=== PATIENT | female | born 1965 | race Hispanic/Latino ===

== ENCOUNTER 2018-05-28 05:39 | Emergency (ER) | payer OTHER ==
[2018-05-28 05:41] VITALS: BMI 35.5
--- NOTE | 2018-05-28 05:52 | ED PDOC ---
Arrival/HPI - General Time Seen by Provider: 05/28/18 05:40 Historian: Patient - History of Present Illness Narrative History of Present Illness (Text): 05/28/18 05:49 53 year old female, whose past medical history includes asthma and thyroid disease, presents to the emergency department with chest discomfort, since 23:00 yesterday. Patient states the pain started shortly after dinner. Patient informs of some associated abdominal pain at the time, which has since resolved. Patient states discomfort is midsternal and feels "tight". reports subjective dyspnea. fever, chills, cough, nausea, vomiting, diarrhea, or any other complaints. 05/28/18 06:29 Time/Duration: 4-6 hours Symptom Onset: Gradual Symptom Course: Unchanged Quality: Tightness Past Medical History - Provider Review Nursing Documentation Reviewed: Yes Family/Social History - Physician Review Nursing Documentation Reviewed: Yes Family/Social History: No Known Family HX Allergies/Home Meds Allergies/Adverse Reactions: Allergies No Known Allergies Allergy (Verified 05/28/18 05:42) Review of Systems - Physician Review All systems were reviewed & negative as marked: Yes - Review of Systems Constitutional: absent: Fevers, Night Sweats Respiratory: absent: SOB, Cough Cardiovascular: Chest Pain (Chest discomfort) Gastrointestinal: absent: Diarrhea, Nausea, Vomiting Physical Exam Vital Signs Reviewed: Yes Temperature: Afebrile Blood Pressure: Hypotensive Pulse: Regular Respiratory Rate: Normal Appearance: Positive for: Well-Appearing, Non-Toxic, Comfortable Pain Distress: None Mental Status: Positive for: Alert and Oriented X 3 - Systems Exam Head: Present: Atraumatic, Normocephalic Pupils: Present: PERRL Extroacular Muscles: Present: EOMI Conjunctiva: Present: Normal Mouth: Present: Moist Mucous Membranes Neck: Present: Normal Range of Motion Respiratory/Chest: Present: Clear to Auscultation, Good Air Exchange. No: Respiratory Distress, Accessory Muscle Use Cardiovascular: Present: Regular Rate and Rhythm, Normal S1, S2. No: Murmurs Abdomen: No: Tenderness, Distention, Peritoneal Signs Back: Present: Normal Inspection Upper Extremity: Present: Normal Inspection. No: Cyanosis, Edema Lower Extremity: Present: Normal Inspection. No: Edema Neurological: Present: GCS=15, CN II-XII Intact, Speech Normal Skin: Present: Warm, Dry, Normal Color. No: Rashes Psychiatric: Present: Alert, Oriented x 3, Normal Insight, Normal Concentration Medical Decision Making ED Course and Treatment: 05/28/18 05:53 Impression: 53 year old female presents with chest discomfort ro acs pe Plan: -- Chest X-ray -- Labs -- Aspirin -- EKG -- Urinalysis -- Reassess and disposition Progress Notes: 05/28/18 05:54 EKG Reviewed by me, shows: Normal sinus rhythm @96 bpm Non specific STT wave changes No previous for comparison 05/28/18 06:30 05/28/18 19:20 case endorsed pending cxr labs reassess and final dispo. - Scribe Statement The provider has reviewed the documentation as recorded by the Scribe Fox Weiss Provider Scribe Attestation: All medical record entries made by the Scribe were at my direction and personally dictated by me. I have reviewed the chart and agree that the record accurately reflects my personal performance of the history, physical exam, medical decision making, and the department course for this patient. I have also personally directed, reviewed, and agree with the discharge instructions and disposition. Disposition/Present on Arrival - Present on Arrival Any Indicators Present on Arrival: No - Disposition Have Diagnosis and Disposition been Completed?: Yes Diagnosis: Gastritis, Chest pain Disposition: HOME/ ROUTINE Disposition Time: 07:00 Condition: IMPROVED Discharge Instructions (ExitCare): Gastritis (DC), Chest Pain (ED) Print Language: GERMAN Additional Instructions: All medical record entries made by the Scribe were at my direction and personally dictated by me. I have reviewed the chart and agree that the record accurately reflects my personal performance of the history, physical exam, medical decision making, and the department course for this patient. I have also personally directed, reviewed, and agree with the discharge instructions and disposition. Prescriptions: Famotidine [Pepcid] 40 mg PO DAILY 10 Days #10 tablet Ondansetron ODT [Zofran ODT] 4 mg PO PRN PRN #4 odt PRN Reason: Nausea/Vomiting Referrals: Alberto Parra MD [Staff Provider] - Follow up with primary Forms: [employer] ([place]ian)
[2018-05-28 06:26] LABS: BASO # 0.03 K/mm3 (0.0-2.0); BASO % 0.4 % (0.0-3.0); EOS # 0.1 (0.0-0.7); EOS % 1.1 % (1.5-5.0); GRAN # 5.83 (1.4-6.5); HEMOGLOBIN 13.6 g/dL (12.0-16.0); LYMPH % 23.1 % (22.0-35.0); MEAN CELL VOLUME 89.6 fl (80.0-105.0); MEAN CORPUSCULAR HEMOGLOBIN 30.1 pg (25.0-35.0); MEAN CORPUSCULAR HGB CONC 33.6 g/dl (31.0-37.0); MONO # 0.6 (0.1-0.6); MONO % 7.4 % (1.0-6.0); RBC 4.52 10^6/uL (3.5-6.1); RED CELL DISTRIBUTION WIDTH 12.9 % (11.5-14.5); WHITE BLOOD COUNT 8.6 10^3/uL (4.5-11.0)
[2018-05-28 06:28] LABS: URINE BILIRUBIN NEGATIVE (NEGATIVE); URINE BLOOD NEGATIVE (NEGATIVE); URINE GLUCOSE (UA) NEGATIVE (NEGATIVE); URINE LEUKOCYTE ESTERASE NEGATIVE Leu/uL (NEGATIVE); URINE PROTEIN NEGATIVE mg/dL (<30 mg/dL); URINE UROBILINOGEN 0.2 E.U./dL (<1 E.U./dL)
[2018-05-28 06:31] LABS: URINE APPEARANCE CLEAR (CLEAR); URINE COLOR YELLOW (YELLOW)
[2018-05-28 06:34] LABS: HCG,QUALITATIVE URINE NEGATIVE (NEGATIVE)
[2018-05-28 06:38] LABS: INR 0.96; PARTIAL THROMBOPLASTIN TIME 26.5 Seconds (25.1-36.5)
[2018-05-28 06:39] LABS: ALB/GLOB RATIO 1.3 (1.1-1.8); ALBUMIN 4.5 g/dL (3.0-4.8); ALT/SGPT 54 U/L (7-56); AST/SGOT 44 U/L (14-36); BLOOD UREA NITROGEN 12 mg/dL (7-21); CALCIUM 9.1 mg/dL (8.4-10.5); GFR NON-AFRICAN AMERICAN > 60; LIPASE 37 U/L (23-300)
[2018-05-28 06:50] LABS: B-TYPE NATRIURETIC PEPTIDE 55.1 pg/mL (0-450); TROPONIN I < 0.01 ng/mL
--- NOTE | 2018-05-28 07:12 | ED PDOC ---
Physical Exam Vital Signs Reviewed: Yes Vital Signs Temp Pulse Resp BP Pulse Ox 05/28/18 05:42 97.6 F 92 H 20 99/74 L 96 Temperature: Afebrile Blood Pressure: Hypotensive Pulse: Tachycardic Respiratory Rate: Normal Medical Decision Making ED Course and Treatment: 05/28/18 07:06 Patient endorsed to me by Dr. Dean. Patient is a 53 year old female presenting to the emergency department complaining of chest discomfort. Pending Chest X-ray results. 05/28/18 07:22 Troponin & D-dimer WNL. Repeat EKG order. Discussion regarding symptoms with patient admitting the onset of chest pain after the ingestion of spicy food at her parent's house and requests a GI c ocktail. She admantly does not think her chest pain is cardiac in origin and wishes to follow up with her PCP who will refer her to a gunner's mate m. - Lab Interpretations Lab Results: 05/28/18 05:53 05/28/18 05:53 Lab Results 05/28/18 06:01: Urine Color Yellow, Urine Appearance Clear, Urine pH 6.0, Ur Specific [place] 1.025, Urine Protein Negative, Urine Glucose (UA) Negative, Urine Ketones Negative, Urine Blood Negative, Urine Nitrate Negative, Urine Bilirubin Negative, Urine Urobilinogen 0.2, Ur Leukocyte Esterase Negative, Urine HCG, Qual Negative 05/28/18 06:00: D-Dimer, Quantitative < 200 05/28/18 05:53: Sodium 140, Potassium 4.2, Chloride 104, Carbon Dioxide 27, Anion Gap 13, BUN 12, Creatinine 0.8, Est GFR ( Amer) > 60, Est GFR (Non- Af Amer) > 60, Random Glucose 121 H, Calcium 9.1, Magnesium 1.6 L, Total Bilirubin 0.4, AST 44 H, ALT 54, Alkaline Phosphatase 85, Lactate Dehydrogenase 513, Total Creatine Kinase 104, Troponin I < 0.01, NT-Pro-B Natriuret Pep 55.1, Total Protein 7.8, Albumin 4.5, Globulin 3.4, Albumin/Globulin Ratio 1.3, Lipase 37 05/28/18 05:53: PT 11.0, INR 0.96, APTT 26.5 05/28/18 05:53: WBC 8.6, RBC 4.52, Hgb 13.6, Hct 40.5, MCV 89.6, MCH 30.1, MCHC 33.6, RDW 12.9, Plt Count 276, MPV 10.0, Gran % 68.0, Lymph % (Auto) 23.1, [place] % (Auto) 7.4 H, Eos % (Auto) 1.1 L, Baso % (Auto) 0.4, Gran # 5.83, Lymph # (Auto) 2.0, [place] # (Auto) 0.6, Eos # (Auto) 0.1, Baso # (Auto) 0.03 - RAD Interpretation Radiology Orders: 05/28/18 05:48 CHEST PORTABLE [RAD] Stat - EKG Interpretation EKG Interpretation (Text): 05/28/18 08:00 NSR @ 76bpm No ST elevations/depressions. No T wave inversions noted Interpreted by ED Physician: Yes - Medication Orders Current Medication Orders: Discontinued Medications Aspirin (Aspirin) 325 mg PO STAT STA Stop: 05/28/18 05:49 Last Admin: 05/28/18 06:06 Dose: 325 mg - Scribe Statement The provider has reviewed the documentation as recorded by the Scribe Sharyn Encinas All medical record entries made by the Scribe were at my direction and personally dictated by me. I have reviewed the chart and agree that the record accurately reflects my personal performance of the history, physical exam, medical decision making, and the department course for this patient. I have also personally directed, reviewed, and agree with the discharge instructions and disposition. Disposition/Present on Arrival - Present on Arrival Any Indicators Present on Arrival: No History of DVT/PE: No History of Uncontrolled Diabetes: No Urinary Catheter: No History of Decub. Ulcer: No History Surgical Site Infection Following: None - Disposition Have Diagnosis and Disposition been Completed?: Yes Diagnosis: Gastritis Disposition: HOME/ ROUTINE Disposition Time: 08:24 Patient Plan: Discharge Condition: IMPROVED Discharge Instructions (ExitCare): Gastritis (DC) Print Language: SWEDISH Additional Instructions: All medical record entries made by the Scribe were at my direction and personally dictated by me. I have reviewed the chart and agree that the record accurately reflects my personal performance of the history, physical exam, medical decision making, and the department course for this patient. I have also personally directed, reviewed, and agree with the discharge instructions and disposition. Prescriptions: Famotidine [Pepcid] 40 mg PO DAILY 10 Days #10 tablet Ondansetron ODT [Zofran ODT] 4 mg PO PRN PRN #4 odt PRN Reason: Nausea/Vomiting Referrals: Alberto Parra MD [Staff Provider] - Follow up with primary Forms: [employer] ([place])
[2018-05-28] MEDS ORDERED: Atrop/Hyosc/Scopal/PB Elixir (120 ml) PO STA (07:20)
[2018-05-28] MEDS ORDERED: Alum-Mag Hydrox-Simethicone Susp (30 mL) PO STA (07:20)
[2018-05-28 08:55] VITALS: RESP 18
[2018-05-28 08:56] VITALS: BP 102/66; PULSE 68; TEMP 98; O2SAT 99
--- NOTE | 2018-05-28 09:10 | RAD ---
Date of service: 05/28/2018 HISTORY: cp COMPARISON: No prior. FINDINGS: LUNGS: No active pulmonary disease. PLEURA: No significant pleural effusion identified, no pneumothorax apparent. CARDIOVASCULAR: No aortic atherosclerotic calcification present. Normal cardiac size. No pulmonary vascular congestion. OSSEOUS STRUCTURES: No significant abnormalities. VISUALIZED UPPER ABDOMEN: Normal. OTHER FINDINGS: None. IMPRESSION: No active disease.
--- NOTE | 2018-05-28 16:21 | CARD ---
APPROVED REPORT Date of service: 05/28/2018 EKG Measurement Heart [id number] <Conclusion> Normal sinus rhythm Nonspecific T wave abnormality Prolonged QT Abnormal ECG
== END 2018-05-28 08:56 | disposition home or self-care (01) ==
LOC: ED 05:39
DX: R07.9 Chest pain, unspecified (principal); K29.70 Gastritis, unspecified, without bleeding